=== PATIENT | female | born 1995 | race Caucasian/White ===

== ENCOUNTER 2018-05-17 14:44 | Emergency (ER) | payer MEDICAID, SELFPAY, OTHER | END 2018-05-17 15:56 | disposition home or self-care (01) | LOC: M ED 14:44 | DX: S50.862A Insect bite (nonvenomous) of left forearm, initial encounter (principal); W57.XXXA Bitten or stung by nonvenomous insect and other nonvenomous arthropods, initial encounter; Y92.89 Other specified places as the place of occurrence of the external cause; Z79.899 Other long term (current) drug therapy; Z91.030 Bee allergy status | CPT/HCPCS: 99282 ==

== ENCOUNTER 2019-03-17 20:07 | Emergency (ER) | payer MEDICAID ==
[~2019-03-17] VITALS: Ht 160 cm; Wt 89.5 kg
[~2019-03-17 20:07] MED LIST: BENA25CA4 PO; FLON1SPR NARES
[2019-03-17] MEDS ORDERED: MULTTAB20 PO (20:14)
[2019-03-17 21:04] LABS: BASO % 0.3 % (0.0-1.0); EOS # 0.2 10^3/uL (0.0-0.50); EOS % 2.7 % (0.0-3.0); HEMATOCRIT 37.8 % (36.0-47.0); HEMOGLOBIN 12.4 g/dl (12.0-15.5); LYMPH # 2.4 10^3/uL (1.5-6.5); MEAN CORPUSCULAR HEMOGLOBIN 29.7 pg (27.0-33.0); MEAN CORPUSCULAR HGB CONC 32.8 g/dl (32.0-36.5); MEAN CORPUSCULAR VOLUME 90.6 fl (80.0-96.0); MONO # 0.5 10^3/uL (0.0-0.8); MONO % 7.3 % (0.0-5.0); NEUTROPHILS # 3.9 10^3/uL (1.8-7.7); NEUTROPHILS % 55.6 % (36.0-66.0); PLATELET COUNT, AUTOMATED 291 10^3/uL (150-450); RED BLOOD COUNT 4.17 10^6/uL (4.00-5.40)
[2019-03-17 21:29] LABS: BLOOD UREA NITROGEN 12 MG/DL (7-18); CALCIUM LEVEL 8.7 MG/DL (8.5-10.1); CARBON DIOXIDE LEVEL 26 MEQ/L (21-32); CHLORIDE LEVEL 110 MEQ/L (98-107); CREATININE FOR GFR 1.11 MG/DL (0.55-1.30); GLOMERULAR FILTRATION RATE > 60.0 (>60); GLUCOSE, FASTING 91 MG/DL (70-100); POTASSIUM SERUM 3.8 MEQ/L (3.5-5.1); SODIUM LEVEL 143 MEQ/L (136-145)
[2019-03-17 23:23] VITALS: BP 133/77
== END 2019-03-17 23:54 | disposition home or self-care (01) ==
LOC: M ED 20:07
DX: N93.9 Abnormal uterine and vaginal bleeding, unspecified (principal); Z32.01 Encounter for pregnancy test, result positive; R11.0 Nausea; Z91.030 Bee allergy status; Z88.8 Allergy status to other drugs, medicaments and biological substances

== ENCOUNTER → 2019-03-20 | Outpatient (REF) | payer OTHER, MEDICAID ==
[~2019-03-20] MED LIST changes: +MULTTAB20 PO
[2019-03-20 20:39] LABS: BASO % 0.2 % (0.0-1.0); EOS # 0.1 10^3/uL (0.0-0.50); EOS % 2.3 % (0.0-3.0); HEMATOCRIT 39.2 % (36.0-47.0); HEMOGLOBIN 12.5 g/dl (12.0-15.5); LYMPH # 1.6 10^3/uL (1.5-6.5); MEAN CORPUSCULAR HGB CONC 31.9 g/dl (32.0-36.5); MONO # 0.3 10^3/uL (0.0-0.8); MONO % 7.4 % (0.0-5.0); NEUTROPHILS # 2.4 10^3/uL (1.8-7.7); NEUTROPHILS % 54.9 % (36.0-66.0); PLATELET COUNT, AUTOMATED 325 10^3/uL (150-450); RED BLOOD COUNT 4.31 10^6/uL (4.00-5.40); WHITE BLOOD COUNT 4.4 10^3/uL (4.0-10.0)
[2019-03-20 20:52] LABS: HEMOGLOBIN A1c 5.3 %
[2019-03-20 20:56] LABS: ALT/SGPT 22 U/L (12-78); BILIRUBIN,TOTAL 0.3 MG/DL (0.2-1.0); BLOOD UREA NITROGEN 8 MG/DL (7-18); CARBON DIOXIDE LEVEL 25 MEQ/L (21-32); CHLORIDE LEVEL 110 MEQ/L (98-107); CHOLESTEROL LEVEL 178 MG/DL (<200); CHOLESTEROL RISK RATIO 2.966 (<5); CREATININE FOR GFR 0.87 MG/DL (0.55-1.30); FREE T4 1.11 NG/DL (0.76-1.46); GLOMERULAR FILTRATION RATE > 60.0 (>60); GLUCOSE, FASTING 93 MG/DL (70-100); HDL CHOLESTEROL 60 MG/DL (>40); LDL CHOLESTEROL 103 MG/DL (<100); NON-HDL-C 118 MG/DL; SODIUM LEVEL 141 MEQ/L (136-145); TOTAL 25(OH) VITAMIN D 17.6 NG/ML (30.0-100.0); TOTAL PROTEIN 7.6 GM/DL (6.4-8.2); TRIGLYCERIDES LEVEL 73 MG/DL (<150)
[2019-03-23 00:06] LABS: Lyme Disease IgG/IgM Antibodie <0.91 ISR (0.00-0.90); Lyme Disease IgM Ab Quantitati <0.80 index (0.00-0.79)
== END ==
LOC: M LAB REF 16:49
PROVIDERS: ATTEND Family Medicine
DX: Z13.228 Encounter for screening for other metabolic disorders (principal)

== ENCOUNTER → 2019-03-20 | Outpatient (REF) | payer OTHER, MEDICAID | LOC: M LAB REF 16:52 | PROVIDERS: ATTEND Physician Assistant | DX: N92.5 Other specified irregular menstruation (principal) ==

== ENCOUNTER 2019-09-27 15:07 | Emergency (ER) | payer MEDICAID, OTHER ==
[~2019-09-27] VITALS: Ht 160 cm; Wt 75.8 kg
[2019-09-27 15:08] VITALS: BP 125/66
[2019-09-27] MEDS ORDERED: CEFD1CAP8 (15:14)
[2019-09-27] MEDS ORDERED: NIX1LIQ3 TOP (17:29)
== END 2019-09-27 17:42 | disposition home or self-care (01) ==
LOC: M ED 15:07
DX: B85.0 Pediculosis due to Pediculus humanus capitis (principal); Z79.899 Other long term (current) drug therapy; Z91.030 Bee allergy status; Z88.8 Allergy status to other drugs, medicaments and biological substances

== ENCOUNTER 2019-10-09 13:24 | Emergency (ER) | payer OTHER ==
[~2019-10-09] VITALS: Ht 160 cm; Wt 75.0 kg
[~2019-10-09 13:24] MED LIST changes: +CEFD1CAP8; +NIX1LIQ3 TOP
[2019-10-09] MEDS ORDERED: anxiety med (13:31)
[2019-10-09 17:34] LABS: CHLAMYDIA DNA AMPLIFICATION NEGATIVE (NEGATIVE); GC DNA AMPLIFICATION NEGATIVE (NEGATIVE)
[2019-10-09 18:00] VITALS: BP 134/88
[2019-10-09 19:46] LABS: HIV 1&2 SCREEN CENTAUR NEGATIVE (NEGATIVE)
[2019-10-11 10:37] LABS: HEPATITIS B SURFACE ANTIBODY NEGATIVE (POSITIVE); HEPATITIS B SURFACE ANTIGEN NEGATIVE (NEGATIVE); HEPATITIS C VIRUS ABY INDEX < 0.0 INDEX (<0.8)
== END 2019-10-09 18:00 | disposition home or self-care (01) ==
LOC: M ED 13:24
DX: Z20.2 Contact with and (suspected) exposure to infections with a predominantly sexual mode of transmission (principal); Z91.048 Other nonmedicinal substance allergy status; Z88.8 Allergy status to other drugs, medicaments and biological substances

== ENCOUNTER → 2020-06-28 | Outpatient (CLI) | payer OTHER ==
[~2020-06-28] MED LIST changes: +anxiety med
[2020-06-28 14:22] LABS: HEMATOCRIT 36.2 % (36.0-47.0); HEMOGLOBIN 11.4 g/dl (12.0-15.5); MEAN CORPUSCULAR HEMOGLOBIN 29.8 pg (27.0-33.0); MEAN CORPUSCULAR HGB CONC 31.5 g/dl (32.0-36.5); MEAN CORPUSCULAR VOLUME 94.8 fl (80.0-96.0); PLATELET COUNT, AUTOMATED 249 10^3/uL (150-450); RED BLOOD COUNT 3.82 10^6/uL (4.00-5.40); WHITE BLOOD COUNT 6.8 10^3/uL (4.0-10.0)
== END ==
LOC: M LAB 12:58
PROVIDERS: ATTEND Advanced Practice Midwife
DX: Z34.83 Encounter for supervision of other normal pregnancy, third trimester (principal); Z3A.00 Weeks of gestation of pregnancy not specified

== ENCOUNTER 2020-07-23 08:23 | Inpatient (IN) | payer OTHER ==
[~2020-07-23] VITALS: Ht 160 cm; Wt 87.7 kg
[2020-07-23] VITALS (30 sets, daily range): BP systolic 99–158; BP diastolic 56–86
[2020-07-23] MEDS ORDERED: LACTATED RINGER'S 1000 ML IV STA (09:06)
[2020-07-23] MEDS ORDERED: LR 1,000 ML IV SCH (09:06)
[2020-07-23 10:10] LABS: HEMATOCRIT 37.7 % (36.0-47.0); MEAN CORPUSCULAR HEMOGLOBIN 29.1 pg (27.0-33.0); MEAN CORPUSCULAR HGB CONC 31.8 g/dl (32.0-36.5); MEAN CORPUSCULAR VOLUME 91.3 fl (80.0-96.0); PLATELET COUNT, AUTOMATED 310 10^3/uL (150-450); RED BLOOD COUNT 4.13 10^6/uL (4.00-5.40); WHITE BLOOD COUNT 7.9 10^3/uL (4.0-10.0)
[2020-07-23] MEDS ORDERED: AMPICILLIN SOD 2 GM in D5W MINI-BAG PLUS 100 ML IV ONE (10:15)
[2020-07-23] MEDS ORDERED: FENTANYL 2MCG/ML ROPIVACAINE 0.2% IN 0.9% NACL 100ML IVBAG As Ordered ONE (11:21)
[2020-07-23] MEDS ORDERED: REFRIGERATOR IV KEYS XX PRN (12:00)
[2020-07-23] MEDS ORDERED: ePHEDrine SULFATE 25 MG/5 ML(5MG/ML) SYRINGE IV PRN (12:00)
[2020-07-23] MEDS ORDERED: EPIDURAL COMMENT XX SCH (12:00)
[2020-07-23] MEDS ORDERED: diphenhydrAMINE 50MG/ML VIAL (J1200) IV PRN (12:00)
[2020-07-23] MEDS ORDERED: NALOXONE INJ 0.4MG/1ML VIAL (J2310 PER 1MG) IV PRN (12:00)
[2020-07-23] MEDS ORDERED: LACTATED RINGER'S 1000 ML IV PRN (12:00)
[2020-07-23] MEDS ORDERED: FENTANYL/ROPIVACAINE/NACL BAG 100 ML EPIDURAL SCH (12:00)
[2020-07-23] MEDS ORDERED: ONDANSETRON 4MG/2ML VIAL IV PRN (12:00)
[2020-07-23] MEDS ORDERED: EPIDURAL/PCA KEYS XX PRN (12:00)
[2020-07-23] MEDS ORDERED: OXYTOCIN 30 UNITS IN 0.9% NaCl 500ML IV BAG (J2590) As Ordered ONE (12:53)
[2020-07-23] MEDS ORDERED: OXYTOCIN DRIP 30 UNITS in IV 1 EA IV SCH ×2 (13:00→13:34)
[2020-07-23] MEDS ORDERED: ACETAMINOPHEN TAB 650MG DOSE (2X325MG) PO PRN (13:45)
[2020-07-23] MEDS ORDERED: MEASLES,MUMPS,RUBELLA VACCINE INJ (MMR-II) (90707) SC SCH (13:45)
[2020-07-23] MEDS ORDERED: DIBUCAINE 1% OINTMENT 30GM TOP PRN (13:45)
[2020-07-23] MEDS ORDERED: IBUPROFEN 800 MG TAB PO PRN (13:45)
[2020-07-23] MEDS ORDERED: RHOGAM 300 MCG (1500 IU) INJ (J2790) IM SCH (13:45)
[2020-07-23] MEDS ORDERED: METHYLERGONOVINE MALEATE 0.2 MG TAB PO PRN (13:45)
[2020-07-23] MEDS ORDERED: DOCUSATE SODIUM 100 MG CAP PO PRN (13:45)
[2020-07-23] MEDS ORDERED: ANUSOL HC CREAM 30GM TOP PRN (13:45)
[2020-07-23 14:03] LABS: CORD GAS ABE V -3.7; CORD GAS HCO3 V 23.5 MEQ/L; CORD GAS O2 SAT V 49.7 %; CORD GAS PCO2 V 50.4 mmHg; CORD GAS PH V 7.287 UNITS; CORD GAS PO2 V 23.3 mmHg; CORD GAS SBC V 20.2 MEQ/L; CORD GAS TCO2 V 25.1 MEQ/L
[2020-07-23] MEDS ORDERED: AMPICILLIN SOD 1 GM in D5W 50 ML IV SCH (14:15)
[2020-07-23] MEDS: IBUPROFEN 600MG TAB PO PRN (20:02)
[2020-07-23] MEDS: ACETAMINOPHEN 500 MG TAB PO PRN (22:33)
[2020-07-24 06:01] VITALS: BP 129/71
--- NOTE | 2020-07-24 07:00 | HPE ---
DATE OF ADMISSION: 07/23/2020 Shelly is a 25-year-old female, 3, para 2-0-0-2 with an estimated date of confinement (EDC) of 07/23/2020, estimated gestational age (EGA) of 40 weeks gestation, who presented with complaints of contractions every 4-5 minutes. Upon evaluation was found to be in labor. At this point, a decision was made for admission. Her records reviewed, which were essentially unremarkable. LABORATORY: Blood type is A positive, rubella immune. Hepatitis negative, HIV negative, GC/chlamydia negative. One-hour sugar testing was within normal limits. Her GBS is positive. MEDICAL HISTORY: Denies. PAST SURGICAL HISTORY: Denies. SOCIAL HISTORY: Denies any alcohol, drugs, or cigarette smoking. REVIEW OF SYSTEMS: Unremarkable. FAMILY HISTORY: Significant for bone cancer and lung cancer. PHYSICAL EXAMINATION: Mildly obese female in no acute distress. Abdomen soft, nontender, nondistended. Extremities: No clubbing, cyanosis, or edema. Vaginal exam is 4 cm dilated, 80%, fetus at -3 station in vertex position with a bulging membrane. ASSESSMENT: 1. Intrauterine at 40 weeks gestation, in labor. 2. GBS positive. PLAN: Admit to labor and delivery. Routine labs sent. Ampicillin started for GBS prophylaxis. Pain management discussed. Patient opts for an epidural. Will continue to monitor. Anticipate delivery. [facility]
[2020-07-24] MEDS: IBUPROFEN 600MG TAB PO PRN ×2 (08:45→17:11)
[2020-07-24] MEDS: PRENATAL VITAMINS CHEWABLE TABLET PO SCH (08:45)
--- NOTE | 2020-07-24 09:57 | DN ---
DATE OF DELIVERY: 07/23/2020 Shelly is a 25-year-old female, 3, para 2, 0, 0, 2, who was admitted at 40 weeks gestation in labor. She progressed to fully dilated after spontaneous rupture of membranes and delivered a live female in the left occiput anterior position over an intact perineum. Apgars of 9 and 9, weight 7 pounds 2 ounces. Placenta delivered spontaneously intact, three vessel cord. Perineum, vagina, cervix were inspected, no laceration noted. Estimated blood loss 250 cc. Both mother and baby in stable condition. [facility]
[2020-07-24 18:00] VITALS: BP 127/71
[2020-07-24 19:45] VITALS: BP 127/71
[2020-07-25] MEDS: ACETAMINOPHEN 500 MG TAB PO PRN (01:28)
[2020-07-25 06:00] VITALS: BP 118/76
[2020-07-25] MEDS: PRENATAL VITAMINS CHEWABLE TABLET PO SCH (08:42)
[2020-07-25] MEDS ORDERED: INFLUENZA QUADRIVALENT PF VACCINE 0.5ML SYRINGE IM ONE (09:00)
== END 2020-07-25 14:37 | disposition home or self-care (01) | DRG 560 ==
LOC: M LDO 08:23 → M LDI 09:15 → M OBS 16:44
PROVIDERS: ADMIT Obstetrics & Gynecology; ATTEND Obstetrics & Gynecology
PROC: 10E0XZZ Delivery of Products of Conception, External Approach (ICD-10-PCS; principal; 2020-07-23)
DX: O99.824 Streptococcus B carrier state complicating childbirth (principal); Z37.0 Single live birth; Z3A.40 40 weeks gestation of pregnancy

== ENCOUNTER → 2020-09-18 | Outpatient (REF) | payer OTHER ==
[2020-09-18 16:59] LABS: BASO % 0.2 % (0.0-1.0); EOS # 0.2 10^3/uL (0.0-0.5); EOS % 4.3 % (0.0-3.0); HEMATOCRIT 41.3 % (36.0-47.0); HEMOGLOBIN 12.5 g/dl (12.0-15.5); LYMPH # 1.6 10^3/uL (1.5-5.0); LYMPH % 31.8 % (24.0-44.0); MEAN CORPUSCULAR HEMOGLOBIN 27.7 pg (27.0-33.0); MEAN CORPUSCULAR HGB CONC 30.3 g/dl (32.0-36.5); MEAN CORPUSCULAR VOLUME 91.4 fl (80.0-96.0); MONO # 0.4 10^3/uL (0.0-0.8); MONO % 7.8 % (0.0-5.0); NEUTROPHILS # 2.8 10^3/uL (1.5-8.5); NEUTROPHILS % 55.7 % (36.0-66.0); PLATELET COUNT, AUTOMATED 352 10^3/uL (150-450); RED BLOOD COUNT 4.52 10^6/uL (4.00-5.40); WHITE BLOOD COUNT 5.1 10^3/uL (4.0-10.0)
[2020-09-18 17:27] LABS: ALT/SGPT 28 U/L (12-78); BILIRUBIN,TOTAL 0.4 MG/DL (0.2-1.0); BLOOD UREA NITROGEN 14 MG/DL (7-18); CALCIUM LEVEL 9.5 MG/DL (8.5-10.1); CARBON DIOXIDE LEVEL 28 MEQ/L (21-32); CHLORIDE LEVEL 107 MEQ/L (98-107); CHOLESTEROL LEVEL 212 MG/DL (<200); CHOLESTEROL RISK RATIO 3.164 (<5); CREATININE FOR GFR 0.89 MG/DL (0.55-1.30); GLOMERULAR FILTRATION RATE > 60.0 (>60); GLUCOSE, FASTING 87 MG/DL (70-100); HDL CHOLESTEROL 67 MG/DL (>40); LDL CHOLESTEROL 128 MG/DL (<100); NON-HDL-C 145 MG/DL; POTASSIUM SERUM 4.3 MEQ/L (3.5-5.1); SODIUM LEVEL 140 MEQ/L (136-145); TOTAL PROTEIN 7.8 GM/DL (6.4-8.2); TRIGLYCERIDES LEVEL 85 MG/DL (<150)
[2020-09-18 17:31] LABS: HEMOGLOBIN A1c 4.9 %
== END ==
LOC: M LAB REF 16:34
PROVIDERS: ATTEND Physician Assistant
DX: R53.83 Other fatigue (principal); E66.9 Obesity, unspecified

== ENCOUNTER → 2020-10-17 | Outpatient (REF) | payer OTHER | LOC: M LAB REF 16:14 | PROVIDERS: ATTEND Physician Assistant | DX: Z11.3 Encounter for screening for infections with a predominantly sexual mode of transmission (principal) ==

== ENCOUNTER → 2020-11-14 | Outpatient (CLI) | payer OTHER ==
[2020-11-14 15:13] LABS: FREE T4 0.89 NG/DL (0.76-1.46); THYROID STIMULATING HORMONE 1.42 uIU/ML (0.358-3.740); TOTAL 25(OH) VITAMIN D 16.4 NG/ML (30.0-100.0)
== END ==
LOC: M LAB 13:55
PROVIDERS: ATTEND Physician Assistant
DX: F41.8 Other specified anxiety disorders (principal)

== ENCOUNTER → 2021-02-26 | Outpatient (CLI) | payer OTHER ==
[2021-02-26 17:30] LABS: ALT/SGPT 12 U/L (12-78); BILIRUBIN,TOTAL 0.4 MG/DL (0.2-1.0); BLOOD UREA NITROGEN 18 MG/DL (7-18); CALCIUM LEVEL 9.2 MG/DL (8.5-10.1); CARBON DIOXIDE LEVEL 28 MEQ/L (21-32); CHLORIDE LEVEL 105 MEQ/L (98-107); CHOLESTEROL LEVEL 230 MG/DL (<200); CHOLESTEROL RISK RATIO 3.833 (<5); CREATININE FOR GFR 0.81 MG/DL (0.55-1.30); GLOMERULAR FILTRATION RATE > 60.0 (>60); GLUCOSE, FASTING 84 MG/DL (70-100); HDL CHOLESTEROL 60 MG/DL (>40); LDL CHOLESTEROL 154 MG/DL (<100); NON-HDL-C 170 MG/DL; POTASSIUM SERUM 4.2 MEQ/L (3.5-5.1); SODIUM LEVEL 140 MEQ/L (136-145); TOTAL PROTEIN 7.7 GM/DL (6.4-8.2); TRIGLYCERIDES LEVEL 80 MG/DL (<150)
== END ==
LOC: M LAB 14:05
PROVIDERS: ATTEND Physician Assistant
DX: E78.5 Hyperlipidemia, unspecified (principal)

== ENCOUNTER → 2022-11-16 | Outpatient (REF) | payer OTHER ==
[~2022-11-16] MED LIST changes: -CEFD1CAP8; +CEFD300C41
[2022-11-16 17:00] LABS: HEMOGLOBIN 11.7 g/dl (12.0-15.5); MEAN CORPUSCULAR HEMOGLOBIN 29.2 pg (27.0-33.0); MEAN CORPUSCULAR HGB CONC 30.8 g/dl (32.0-36.5); MEAN CORPUSCULAR VOLUME 94.8 fl (80.0-96.0); PLATELET COUNT, AUTOMATED 255 10^3/uL (150-450); RED BLOOD COUNT 4.01 10^6/uL (4.00-5.40); WHITE BLOOD COUNT 4.8 10^3/uL (4.0-10.0)
[2022-11-16 17:28] LABS: ALBUMIN 3.7 G/DL (3.2-5.2); ALKALINE PHOSPHATASE 67 U/L (46-116); ALT/SGPT 15 U/L (7.0-40); AST/SGOT 16 U/L (<34); BILIRUBIN,TOTAL 0.4 MG/DL (0.3-1.2); BLOOD UREA NITROGEN 9 MG/DL (9-23); CALCIUM LEVEL 8.7 MG/DL (8.5-10.1); CARBON DIOXIDE LEVEL 27 MMOL/L (20-31); CHLORIDE LEVEL 108 MMOL/L (98-107); CHOLESTEROL LEVEL 179 MG/DL (<200); CHOLESTEROL RISK RATIO 3.02 (<5); CREATININE FOR GFR 0.72 MG/DL (0.55-1.30); GLOMERULAR FILTRATION RATE > 60.0 (>60); GLUCOSE, FASTING 78 MG/DL (60-100); HDL CHOLESTEROL 59.2 MG/DL (>40); LDL CHOLESTEROL 107.2 MG/DL (<100); NON-HDL-C 120 MG/DL; SODIUM LEVEL 140 MMOL/L (136-145); THYROID STIMULATING HORMONE 1.851 uIU/ML (0.55-4.78); TOTAL 25(OH) VITAMIN D 23.3 NG/ML (20.0-100.0); TOTAL PROTEIN 6.7 G/DL (5.7-8.2); TRIGLYCERIDES LEVEL 63 MG/DL (<150)
== END ==
LOC: M LAB REF 16:12
PROVIDERS: ATTEND Physician Assistant
DX: E78.5 Hyperlipidemia, unspecified (principal); F41.8 Other specified anxiety disorders; E55.9 Vitamin D deficiency, unspecified; H04.129 Dry eye syndrome of unspecified lacrimal gland